=== PATIENT | female | born 1965 | race African-American/Black ===

== ENCOUNTER → 2018-01-08 | Outpatient (CLI) | payer BC ==
--- NOTE | 2018-01-08 16:44 | Diagnostic Imaging Report ---
EXAM: DXA BONE DENSITY INDICATIONS: Menopausal COMPARISON: None. FINDINGS: Proximal left femur total bone mineral density (BMD) (g/cm2):1.014 Femur T-score (standard deviation relative to young adult mean BMD):-0 point Femur Z-score (standard deviation relative to age-matched control group):0.4 Proximal left femur neck bone mineral density (BMD) (g/cm2):0.931 Femur T-score (standard deviation relative to young adult mean BMD): -0.1 Femur Z-score (standard deviation relative to age-matched control group):0.6 Lumbar bone mineral density (BMD) (g/cm2):1.276 Lumbar T-score (standard deviation relative to young adult mean BMD): 1.1 Lumbar Z-score (standard deviation relative to age-matched control group):2.3 Change since prior exam (%): Femur:Not applicable. Spine:Not applicable. Change since oldest prior exam (%): Femur:Not applicable. Spine:Not applicable. CONCLUSION: 1. Bone mineral density in the left femur is classified as normal. Fracture risk is not increased. 2. Bone mineral density in the spine is classified as normal. Fracture risk is not increased. World Health Organization Classification: *The Z-score is provided for informational purposes. The T-score is preferable for clinical decisions. When comparing exams, a change of >4% is considered statistically significant. SUGGESTED RECOMMENDATIONS: Normal \T\ Osteopenia:Consideration should be given to use of calcium supplementation, daily multiple vitamins and adequate exercise, as preventive measures against osteoporosis, if clinically indicated. Osteoporosis \T\ Severe Osteoporosis:In addition to the above, consideration should be given to medical therapy against osteoporosis, if clinically indicated. Edgardo Valle M.D. Dictated by: Edgardo Valle M.D. on 01/08/2018 at 16:44 Electronically approved by: Edgardo Valle M.D. on 01/08/2018 at 16:44
== END ==
LOC: MAMMO 15:14
PROVIDERS: ATTEND Internal Medicine
DX: Z12.31 Encounter for screening mammogram for malignant neoplasm of breast (principal)
CPT/HCPCS: 77067; 77080

== ENCOUNTER → 2020-03-17 | Outpatient (CLI) | payer BC | LOC: MAMMO 08:30 | PROVIDERS: ATTEND Internal Medicine | DX: Z12.31 Encounter for screening mammogram for malignant neoplasm of breast (principal) ==

== ENCOUNTER 2020-09-30 23:31 | Emergency (ER) | payer BC, OTHER ==
[~2020-09-30] VITALS: Ht 162.6 cm; Wt 72.6 kg
[2020-09-30] MEDS ORDERED: ONDANSETRON HCL INJ 2MG/ML 2ML 2 MG/ML VIAL IV STA (23:59)
[2020-10-01] MEDS ORDERED: ACETAMINOPHEN 325 MG TAB PO ONE
[2020-10-01 00:06] LABS: BASOPHILS % 0.4 % (0.0-1.0); EOSINOPHILS # (AUTO) 0.5 (0.0-0.4); EOSINOPHILS % 4.8 % (0.0-6.0); HEMATOCRIT 37.7 % (34.2-44.1); HEMOGLOBIN 13.5 g/dL (12.0-16.0); LYMPHOCYTES % 45.4 % (18.0-39.1); MEAN CORPUSCULAR HEMOGLOBIN 28.6 pg (28-32); MEAN CORPUSCULAR HGB CONC 35.8 g/dL (31-35); MEAN CORPUSCULAR VOLUME 79.9 fL (81-99); MONOCYTES # (AUTO) 0.7 (0.2-0.8); NEUTROPHILS # (AUTO) 4.7 (2.1-6.9); NEUTROPHILS % 43.2 % (38.7-80.0); PLATELET COUNT 247 x10e3/uL (140-360); RED BLOOD COUNT 4.72 x10e6/uL (3.6-5.1); RED CELL DISTRIBUTION WIDTH 14.2 % (11.7-14.4)
[2020-10-01] MEDS ORDERED: ONDANSETRON HCL INJ 2MG/ML 2ML 2 MG/ML VIAL ONE (00:10)
[2020-10-01] MEDS ORDERED: ACETAMINOPHEN 325 MG TAB ONE (00:10)
[2020-10-01 00:23] LABS: ALANINE AMINOTRANSFERASE 115 IU/L (0-55); ALBUMIN 4.3 g/dL (3.5-5.0); ALKALINE PHOSPHATASE 182 IU/L (40-150); ANION GAP 17.3 mmol/L (8-16); BLOOD UREA NITROGEN 13 mg/dL (7-26); BUN/CREATININE RATIO 15 (6-25); CALCIUM 9.7 mg/dL (8.4-10.2); CARBON DIOXIDE 19 mmol/L (22-29); CHLORIDE 106 mmol/L (98-107); CREATINE KINASE 146 IU/L (29-168); CREATININE, SERUM 0.87 mg/dL (0.57-1.11); EST GLOMERULAR FILTRATION RATE > 60 ML/MIN (60-); GLUCOSE 89 mg/dL (74-118); POTASSIUM 4.3 mmol/L (3.5-5.1); SODIUM 138 mmol/L (136-145)
[2020-10-01 00:35] LABS: ALBUMIN/GLOBULIN RATIO 1.1 (0.8-2.0)
[2020-10-01 02:06] VITALS: BP 149/87
== END 2020-10-01 01:00 | disposition home or self-care (01) ==
LOC: ER 23:44
DX: R00.2 Palpitations (principal)
CPT/HCPCS: 36415; 71045; 80053; 82550; 82553; 84484; 85025; 93005; 99284; J2405

== ENCOUNTER → 2021-01-05 | Outpatient (CLI) | payer OTHER ==
[~2021-01-05] MED LIST: COVID-19 VACC, MRNA(MODERNA)/PF 100 MCG/0.5 ML VIAL IM ONE
== END ==
LOC: VACCPMC 08:12
DX: Z23 Encounter for immunization (principal); Z20.822 Contact with and (suspected) exposure to COVID-19
CPT/HCPCS: 0011A; 91301

== ENCOUNTER → 2021-02-02 | Outpatient (CLI) | payer OTHER | END | disposition home or self-care (01) | LOC: VACCPMC 08:00 | DX: Z23 Encounter for immunization (principal); Z20.822 Contact with and (suspected) exposure to COVID-19 | CPT/HCPCS: 91301 ==

== ENCOUNTER → 2021-02-08 | Outpatient (CLI) | payer OTHER | LOC: US 10:38 | PROVIDERS: ATTEND Internal Medicine Gastroenterology | DX: R74.8 Abnormal levels of other serum enzymes (principal) | CPT/HCPCS: 76700 ==

== ENCOUNTER → 2021-06-02 | Outpatient (CLI) | payer OTHER | LOC: MAMMO 07:23 | PROVIDERS: ATTEND Internal Medicine | DX: Z12.31 Encounter for screening mammogram for malignant neoplasm of breast (principal) | CPT/HCPCS: 77067 ==

== ENCOUNTER 2022-03-14 07:33 | Emergency (ER) | payer BC ==
[~2022-03-14] VITALS: Ht 162.6 cm; Wt 72.6 kg
[2022-03-14] MEDS ORDERED: MELOXICAM7.5 MG PO (07:52)
[2022-03-14] MEDS ORDERED: SINGULAIR10 MG PO (07:53)
[2022-03-14 08:23] LABS: CLARITY,URINE CLEAR (CLEAR); COLOR,URINE YELLOW (YELLOW); KETONES,URINE NEGATIVE (NEGATIVE); LEUKOCYTE ESTERASE ,URINE NEGATIVE (NEGATIVE); NITRITE,URINE NEGATIVE (NEGATIVE); PROTEIN,URINE DIPSTICK NEGATIVE (NEGATIVE); URINE UROBILINOGEN 0.2 mg/dL (0.2 - 1)
[2022-03-14 08:48] LABS: BACTERIA,URINE MODERATE /HPF; EPITHELIAL CELLS,URINE FEW /LPF; MUCUS,URINE MANY (RARE); RBC,URINE 0-5 /HPF (0-5); WBC,URINE (MAN) 0-5 /HPF (0-5)
== END 2022-03-14 09:58 | disposition home or self-care (01) ==
LOC: ER 08:02
DX: M25.561 Pain in right knee (principal); Y93.73 Activity, racquet and hand sports; J30.9 Allergic rhinitis, unspecified
CPT/HCPCS: 73562; 81001; 99283; U0002

== ENCOUNTER 2022-05-23 07:19 | Emergency (ER) | payer BC ==
[~2022-05-23] VITALS: Ht 162.6 cm; Wt 72.6 kg
[~2022-05-23 07:19] MED LIST changes: -COVID-19 VACC, MRNA(MODERNA)/PF 100 MCG/0.5 ML VIAL IM ONE; +MELOXICAM7.5 MG PO; +SINGULAIR10 MG PO
[2022-05-23] MEDS ORDERED: ONDANSETRON HCL INJ 2MG/ML 2ML 2 MG/ML VIAL IV STA (07:23)
[2022-05-23] MEDS ORDERED: KETOROLAC TROMETHAMINE 30 MG/ML VIAL IV STA (07:23)
[2022-05-23] MEDS ORDERED: SODIUM CHLORIDE 0.9% 1000ML 1,000 ML IV STA (07:23)
[2022-05-23 07:54] LABS: BASOPHILS # (AUTO) 0.1 (0.0-0.1); BASOPHILS % 0.6 % (0.0-1.0); EOSINOPHILS # (AUTO) 0.4 (0.0-0.4); EOSINOPHILS % 4.7 % (0.0-6.0); HEMATOCRIT 34.2 % (34.2-44.1); HEMOGLOBIN 12.5 g/dL (12.0-16.0); LYMPHOCYTES # (AUTO) 3.8 (1.0-3.2); LYMPHOCYTES % 41.9 % (18.0-39.1); MEAN CORPUSCULAR HEMOGLOBIN 29.6 pg (28-32); MEAN CORPUSCULAR HGB CONC 36.5 g/dL (31-35); MEAN CORPUSCULAR VOLUME 80.9 fL (81-99); MONOCYTES # (AUTO) 0.6 (0.2-0.8); MONOCYTES % 6.6 % (4.4-11.3); NEUTROPHILS # (AUTO) 4.1 (2.1-6.9); PLATELET COUNT 262 x10e3/uL (140-360); RED BLOOD COUNT 4.23 x10e6/uL (3.6-5.1); RED CELL DISTRIBUTION WIDTH 14.2 % (11.7-14.4)
[2022-05-23] MEDS ORDERED: ONDANSETRON HCL INJ 2MG/ML 2ML 2 MG/ML VIAL ONE (08:07)
[2022-05-23] MEDS ORDERED: KETOROLAC TROMETHAMINE 30 MG/ML VIAL ONE (08:07)
[2022-05-23] MEDS ORDERED: SODIUM CHLORIDE 0.9% 1000ML 1,000 ML ONE (08:08)
[2022-05-23 08:15] LABS: COLOR,URINE YELLOW (YELLOW)
[2022-05-23 08:16] LABS: CLARITY,URINE CLEAR (CLEAR); KETONES,URINE NEGATIVE (NEGATIVE); LEUKOCYTE ESTERASE ,URINE NEGATIVE (NEGATIVE); NITRITE,URINE NEGATIVE (NEGATIVE); PROTEIN,URINE DIPSTICK NEGATIVE (NEGATIVE); URINE UROBILINOGEN 0.2 mg/dL (0.2 - 1)
[2022-05-23 08:20] LABS: BACTERIA,URINE RARE /HPF; RBC,URINE 0-5 /HPF (0-5); WBC,URINE (MAN) 0-5 /HPF (0-5)
[2022-05-23 08:21] LABS: EPITHELIAL CELLS,URINE RARE /LPF
[2022-05-23 08:28] LABS: ALBUMIN 3.8 g/dL (3.5-5.0); ANION GAP 12.9 mmol/L (8-16); CREATININE, SERUM 0.96 mg/dL (0.57-1.11); MAGNESIUM 1.9 MG/DL (1.3-2.1); POTASSIUM 3.9 mmol/L (3.5-5.1)
[2022-05-23 08:35] LABS: CREATINE KINASE MB 1.6 ng/mL (0-5.0)
== END 2022-05-23 11:35 | disposition home or self-care (01) ==
LOC: ER 07:24
DX: M54.89 Other dorsalgia (principal); M79.18 Myalgia, other site; R42 Dizziness and giddiness; I10 Essential (primary) hypertension; E78.5 Hyperlipidemia, unspecified
CPT/HCPCS: 36415; 74176; 80053; 81001; 82550; 82553; 83690; 83735; 84484; 85025; 87086; 99284; J1885; J2405; J7030

== ENCOUNTER → 2022-11-23 | Outpatient (CLI) | payer BC | LOC: MAMMO 07:49 | PROVIDERS: ATTEND Internal Medicine | DX: Z12.31 Encounter for screening mammogram for malignant neoplasm of breast (principal) | CPT/HCPCS: 77067 ==

== ENCOUNTER 2023-11-15 05:23 | Observation (INO) | payer BC ==
[2023-11-14 08:48] LABS: BASOPHILS # (AUTO) 0.1 (0.0-0.1); BASOPHILS % 0.8 % (0.0-1.0); EOSINOPHILS # (AUTO) 0.4 (0.0-0.4); EOSINOPHILS % 4.5 % (0.0-6.0); HEMATOCRIT 38.9 % (34.2-44.1); HEMOGLOBIN 13.4 g/dL (12.0-16.0); LYMPHOCYTES # (AUTO) 3.8 (1.0-3.2); LYMPHOCYTES % 42.1 % (18.0-39.1); MEAN CORPUSCULAR HEMOGLOBIN 28.1 pg (28-32); MEAN CORPUSCULAR HGB CONC 34.4 g/dL (31-35); MEAN CORPUSCULAR VOLUME 81.6 fL (81-99); MONOCYTES # (AUTO) 0.6 (0.2-0.8); MONOCYTES % 6.6 % (4.4-11.3); NEUTROPHILS # (AUTO) 4.2 (2.1-6.9); NEUTROPHILS % 45.8 % (38.7-80.0); PLATELET COUNT 285 x10e3/uL (140-360); RED BLOOD COUNT 4.77 x10e6/uL (3.6-5.1); RED CELL DISTRIBUTION WIDTH 13.2 % (11.7-14.4); WHITE BLOOD COUNT 9.08 x10e3/uL (4.8-10.8)
[2023-11-14 08:59] LABS: INR 0.9; PROTHROMBIN TIME 12.3 seconds (11.9-14.5)
[2023-11-14 09:00] LABS: PARTIAL THROMBOPLASTIN TIME 32.1 seconds (23.8-35.5)
[2023-11-14 09:08] LABS: ANION GAP 13.8 mmol/L (8-16); CALCIUM 9.4 mg/dL (8.4-10.2); CREATININE, SERUM 0.9 mg/dL (0.57-1.11)
[2023-11-14 09:12] LABS: POTASSIUM 2.8 mmol/L (3.5-5.1)
[~2023-11-15] VITALS: Ht 162.6 cm; Wt 81.6 kg
[~2023-11-15 05:23] MED LIST changes: +CYCLOBENZAPRINE5 MG PO; +GABAPENTIN100 MG PO; +HYDRALAZINE HCL10 MG PO; +HYDROCHLOROTHIA25 MG PO; +IBUPROFEN200 MG PO; +LIPITOR10 MG PO
[2023-11-15] MEDS: LACTATED RINGER'S 1,000 ML ONE ×2 (06:26→14:18)
[2023-11-15] MEDS: SODIUM CHLORIDE 0.9% 250ML 250 ML ONE (06:39)
[2023-11-15] MEDS: Vancomycin IV 1 GM VIAL ONE (06:39)
[2023-11-15] MEDS ORDERED: LIDOCAINE 1% W/EPINEPHRINE 20 ML VIAL ONE (06:41)
[2023-11-15] MEDS ORDERED: Vancomycin IV 1 GM VIAL ONE (06:41)
[2023-11-15] MEDS ORDERED: THROMBIN FOR SOLN 5,000 UNIT VIAL ONE (06:41)
[2023-11-15 07:13] LABS: ANION GAP 15.9 mmol/L (8-16); CALCIUM 9.4 mg/dL (8.4-10.2); CREATININE, SERUM 0.9 mg/dL (0.57-1.11)
[2023-11-15 07:14] LABS: POTASSIUM 3.9 mmol/L (3.5-5.1)
[2023-11-15] MEDS ORDERED: HYDROCODON-ACE1 EA12 PO (10:10)
[2023-11-15] MEDS ORDERED: ONDANSETRON HCL INJ 2MG/ML 2ML 2 MG/ML VIAL IV PRN (10:15)
[2023-11-15] MEDS ORDERED: ZOLPIDEM TARTRATE 5 MG TAB PO PRN (10:15)
[2023-11-15] MEDS ORDERED: MORPHINE SULFATE 5 MG/ML VIAL IM PRN (10:15)
[2023-11-15] MEDS ORDERED: PROMETHAZINE HCL (IM) 25 MG/ML VIAL IM PRN (10:15)
[2023-11-15] MEDS ORDERED: HYDROMORPHONE 2MG/ML IV PRN (10:15)
[2023-11-15] MEDS: FENTANYL CITRATE/PF 100MCG/2 ML INJ ONE (10:22)
[2023-11-15] MEDS: DIPHENHYDRAMINE HCL INJ 50 MG/ML VIAL ONE (10:58)
[2023-11-15] MEDS: HYDRALAZINE HCL 20 MG/ML VIAL ONE (12:32)
[2023-11-15] MEDS: OXYCODONE/ACETAMINOPHEN 5-325 1 EACH TABLET ONE (13:00)
[2023-11-15] MEDS: CARISOPRODOL 350 MG TAB ONE (13:00)
[2023-11-15] MEDS: LACTATED RINGER'S 1,000 ML IV SCH (13:40)
[2023-11-15] MEDS: GABAPENTIN 100 MG CAP PO SCH (16:23)
[2023-11-15] MEDS: HYDRALAZINE HCL 10 MG TAB PO SCH (16:23)
[2023-11-15 20:00] VITALS: BP 112/94; PULSE 115; RESP 18; TEMP 98.5; O2SAT 98
[2023-11-15] MEDS: CARISOPRODOL 350 MG TAB PO PRN (21:22)
[2023-11-15] MEDS: OXYCODONE/ACETAMINOPHEN 5-325 1 EACH TABLET PO PRN (21:22)
[2023-11-15] MEDS: ACETAMINOPHEN 325 MG TAB PO PRN (21:23)
[2023-11-15] MEDS: ATORVASTATIN 10 MG TAB PO SCH (21:23)
[2023-11-15] MEDS: Vancomycin IV 1 GM in SODIUM CHLORIDE 0.9% 250ML 250 ML IV SCH (21:35)
[2023-11-15] MEDS: CEPACOL SORE THROAT LOZENGES PO PRN (21:52)
[2023-11-15] MEDS: MAGNESIUM/ALUMINUM/SIMETHICONE 30 ML UDC PO PRN (21:52)
[2023-11-16] VITALS: BP 112/88; PULSE 101; RESP 18; TEMP 98; O2SAT 97
[2023-11-16 04:00] VITALS: BP 120/90; PULSE 90; RESP 18; TEMP 98.2; O2SAT 97
[2023-11-16 08:00] VITALS: BP 121/93; PULSE 69; RESP 18; TEMP 97.7; O2SAT 99
[2023-11-16 09:00] VITALS: BP 121/93; PULSE 69; RESP 18; TEMP 97.7; O2SAT 99
[2023-11-16] MEDS ORDERED: HYDROCHLOROTHIAZIDE 25 MG TAB PO SCH (09:00)
== END 2023-11-16 08:51 | disposition home or self-care (01) ==
LOC: OR 05:23 → PACU V 10:59 → MED/SURG 13:11
PROVIDERS: ADMIT Neurological Surgery; ATTEND Neurological Surgery
DX: M50.120 Mid-cervical disc disorder, unspecified level (principal); M06.9 Rheumatoid arthritis, unspecified; D64.9 Anemia, unspecified; I10 Essential (primary) hypertension; Z71.89 Other specified counseling; E66.01 Morbid (severe) obesity due to excess calories; Z71.3 Dietary counseling and surveillance; Z71.82 Exercise counseling; E78.5 Hyperlipidemia, unspecified; Z88.1 Allergy status to other antibiotic agents; Z91.041 Radiographic dye allergy status; Z88.8 Allergy status to other drugs, medicaments and biological substances; Z01.810 Encounter for preprocedural cardiovascular examination; Z01.812 Encounter for preprocedural laboratory examination; Z01.818 Encounter for other preprocedural examination; Z79.1 Long term (current) use of non-steroidal anti-inflammatories (NSAID); Z79.899 Other long term (current) drug therapy; Z68.30 Body mass index [BMI] 30.0-30.9, adult
CPT/HCPCS: 20931; 22551; 22552; 22845; 36415 ×2; 71046; 72040; 76000; 80048 ×2; 85025; 85610; 85730; 86850; 86900; 88304; 88311; 93005; 99252; C1713 ×4; C1768; G0378 ×2; J0360; J1200; J3010; J3370; J7050; J7121

== ENCOUNTER → 2024-02-13 | Outpatient (REF) | payer BC ==
[~2024-02-13] MED LIST changes: +HYDROCODON-ACE1 EA12 PO
== END ==
LOC: MAMMO 07:41
PROVIDERS: ATTEND Internal Medicine
DX: Z12.31 Encounter for screening mammogram for malignant neoplasm of breast (principal)
CPT/HCPCS: 77067

== ENCOUNTER → 2024-07-22 | Outpatient (REF) | payer BC | LOC: RAD 07:36 | PROVIDERS: ATTEND Neurological Surgery | DX: M50.120 Mid-cervical disc disorder, unspecified level (principal) | CPT/HCPCS: 72050 ==